=== PATIENT | female | born 1945 | race Caucasian/White ===

== ENCOUNTER 2018-01-11 14:41 | Inpatient (IN) | payer MEDICARE ==
[~2018-01-11] VITALS: Ht 165.1 cm; Wt 17.8 kg
[~2018-01-11 14:41] MED LIST: ALLO300T PO; AMLO5TAB4 PO; ATEN50TA41 PO; CHOL400C PO; CLOP75TA52 PO; DOXA8TAB63 PO; DOXY100T9 PO; FLAX1CAP PO; FLUT1BLS INH; GABA-826 PO; GABA600T2 PO; HYDR-3245 PO; INSU100I29 SC; INSU100V14 SC; LEVO750T26 PO; LISI40TA PO; NITR0.4T SL; SIMV40TA3 PO; TIOT18CA INH
[2018-01-11] MEDS ORDERED: ALBU8.5H8 INH (15:14)
[2018-01-11] MEDS ORDERED: LISI40TA PO (15:14)
[2018-01-11] MEDS ORDERED: INSU100I13 SC (15:14)
[2018-01-11 15:23] LABS: BASOPHILS % (AUTO) 1 % (0-1); EOSINOPHILS # (AUTO) 0.18 x10^3/uL (0-0.4); EOSINOPHILS % (AUTO) 1 % (1-7); LYMPHOCYTES # (AUTO) 2.46 x10^3/uL (1-3.4); LYMPHOCYTES % (AUTO) 19 % (22-44); MD NO; MEAN CORPUSCULAR HEMOGLOBIN 29.1 pg (27.0-34.8); MEAN CORPUSCULAR HGB CONC 32.8 g/dL (32.4-35.8); MEAN CORPUSCULAR VOLUME 88.7 fL (80-100); MEAN PLATELET VOLUME 7.7 fL (7.4-10.4); MONOCYTES # (AUTO) 0.71 x10^3/uL (0.2-0.8); MONOCYTES % (AUTO) 6 % (2-9); NEUTROPHILS # (AUTO) 9.52 x10^3/uL (1.8-6.8); NEUTROPHILS % (AUTO) 73 % (42-75); PLATELET COUNT 209 x10^3/uL (130-400); RED BLOOD COUNT 4.25 x10^6/uL (3.82-5.3); RED CELL DISTRIBUTION WIDTH 16.1 % (9.6-15.2)
[2018-01-11 15:28] LABS: CHLORIDE 106 mmol/L (98-107)
[2018-01-11 15:29] LABS: ALANINE AMINOTRANSFERASE 23 U/L (12-78); ALBUMIN 2.9 g/dL (3.4-5.0); ANION GAP 2 mmol/L (5-15); CALCIUM 8.4 mg/dL (8.5-10.1); CREATININE 1.86 mg/dL (0.55-1.02)
[2018-01-11 15:33] LABS: ALKALINE PHOSPHATASE 101 U/L (45-117); BILIRUBIN,TOTAL 0.4 mg/dL (0.2-1.0); TOTAL PROTEIN 5.7 g/dL (6.4-8.2); TROPONIN I < 0.015 ng/mL (0.000-0.045)
[2018-01-11 15:49] LABS: CULTURE INDICATED? NO; MICROSCOPIC NOT IND
[2018-01-11] MEDS ORDERED: SODIUM CHLORIDE FLUSH 10ML SYR IVF ONE (16:30)
[2018-01-11] MEDS ORDERED: SODIUM CHLORIDE FLUSH 10ML SYR IVF PRN (18:00)
[2018-01-11 18:01] VITALS: BP 174/69
[2018-01-11] MEDS ORDERED: NS + 20MEQ KCL 1,000 ML IV SCH (19:17)
[2018-01-11] MEDS ORDERED: HYDROcodone/APAP 5/325 TABLET PO PRN (19:30)
[2018-01-11] MEDS ORDERED: CAPTOPRIL 12.5 MG TABLET PO PRN (19:30)
[2018-01-11] MEDS ORDERED: ONDANSETRON 2MG/ML, 2ML IVPush PRN (19:30)
[2018-01-11] MEDS ORDERED: DOCUSATE 100 MG CAPSULE PO PRN (19:30)
[2018-01-11] MEDS ORDERED: BISACODYL 10 MG SUPP PR PRN (19:30)
[2018-01-11] MEDS ORDERED: TRAZODONE 50MG TABLET PO PRN (19:30)
[2018-01-11] MEDS ORDERED: ENALAPRILAT 1.25 MG/ML, 2ML IVPush PRN (19:30)
[2018-01-11] MEDS ORDERED: ONDANSETRON ODT 4 MG PO PRN (19:30)
[2018-01-11 19:42] VITALS: BP 143/75
[2018-01-11 20:00] LABS: TROPONIN I < 0.015 ng/mL (0.000-0.045)
[2018-01-11] MEDS ORDERED: DEXTROSE 50%, 50ML SYRINGE IVPush PRN (20:00)
[2018-01-11] MEDS ORDERED: DEXTROSE 4 GM TAB.CHEW PO PRN (20:00)
[2018-01-11] MEDS ORDERED: GLUCAGON 1 MG IM PRN (20:00)
[2018-01-11 20:06] LABS: THYROID STIMULATING HORMONE 0.913 mIU/L (0.358-3.740)
[2018-01-11] MEDS: INSULIN LISPRO 100 UNITS/ML, PEN SQ-INSULIN SCH (21:00)
[2018-01-11] MEDS: GABAPENTIN 300 MG CAPSULE PO SCH ×2 (21:00→22:23)
[2018-01-11] MEDS ORDERED: INSULIN ASPART 100 UNITS/ML, VIAL SQ-INSULIN SCH (21:00)
[2018-01-11 21:34] VITALS: BP 126/70
[2018-01-11 21:36] VITALS: BP 138/70
[2018-01-11 21:39] VITALS: BP 150/74
[2018-01-11] MEDS: HEPARIN 5,000 UNITS/ML, 1ML SQ SCH (22:01)
[2018-01-11] MEDS: SODIUM CHLORIDE FLUSH 10ML SYR IVF SCH (22:02)
[2018-01-11] MEDS: LISINOPRIL 20 MG TABLET PO SCH (22:02)
[2018-01-11] MEDS: INSULIN GLARGINE 100 UNITS/ML, PEN SQ-INSULIN SCH (22:24)
[2018-01-11] MEDS: ACETAMINOPHEN 325 MG TABLET PO PRN (22:37)
[2018-01-12] VITALS (8 sets, daily range): BP systolic 126–145; BP diastolic 73–84
[2018-01-12 01:37] LABS: BASOPHILS # (AUTO) 0.32 x10^3/uL (0-0.1); BASOPHILS % (AUTO) 2 % (0-1); EOSINOPHILS % (AUTO) 2 % (1-7); LYMPHOCYTES # (AUTO) 2.23 x10^3/uL (1-3.4); LYMPHOCYTES % (AUTO) 16 % (22-44); MD NO; MEAN CORPUSCULAR HEMOGLOBIN 29.1 pg (27.0-34.8); MEAN CORPUSCULAR HGB CONC 32.4 g/dL (32.4-35.8); MEAN CORPUSCULAR VOLUME 89.7 fL (80-100); MEAN PLATELET VOLUME 7.9 fL (7.4-10.4); MONOCYTES % (AUTO) 4 % (2-9); NEUTROPHILS # (AUTO) 10.31 x10^3/uL (1.8-6.8); NEUTROPHILS % (AUTO) 76 % (42-75); PLATELET COUNT 184 x10^3/uL (130-400); RED BLOOD COUNT 3.94 x10^6/uL (3.82-5.3); RED CELL DISTRIBUTION WIDTH 16.3 % (9.6-15.2)
[2018-01-12 01:48] LABS: ANION GAP 3 mmol/L (5-15); CALCIUM 8.2 mg/dL (8.5-10.1); CHLORIDE 107 mmol/L (98-107); CREATININE 1.83 mg/dL (0.55-1.02)
[2018-01-12 01:52] LABS: TROPONIN I < 0.015 ng/mL (0.000-0.045)
[2018-01-12] MEDS: HEPARIN 5,000 UNITS/ML, 1ML SQ SCH ×3 (06:00→23:24)
[2018-01-12] MEDS ORDERED: IPRATROPIUM 0.5 MG/2.5 ML INHA ONE (06:35)
[2018-01-12] MEDS ORDERED: ALBUTEROL SULFATE 2.5 MG/3 ML ONE (06:35)
[2018-01-12] MEDS: INSULIN LISPRO 100 UNITS/ML, PEN SQ-INSULIN SCH ×4 (07:00→20:12)
[2018-01-12] MEDS: IPRATROPIUM 0.5 MG/2.5 ML INHA NPPB SCH ×4 (07:05→21:00)
[2018-01-12] MEDS: ALBUTEROL SULFATE 2.5 MG/3 ML NPPB SCH ×2 (07:05→08:59)
[2018-01-12] MEDS ORDERED: SODIUM CHLORIDE 0.9% 1,000 ML IV SCH (07:30)
[2018-01-12] MEDS ORDERED: INSULIN ASPART 100 UNITS/ML, VIAL SQ-INSULIN SCH (08:00)
[2018-01-12] MEDS: LISINOPRIL 20 MG TABLET PO SCH ×2 (08:44→20:04)
[2018-01-12] MEDS: GABAPENTIN 300 MG CAPSULE PO SCH ×2 (08:44→20:05)
[2018-01-12] MEDS: SODIUM CHLORIDE FLUSH 10ML SYR IVF SCH ×3 (08:58→20:18)
[2018-01-12] MEDS ORDERED: SIMVASTATIN 40 MG TABLET PO SCH (09:00)
[2018-01-12] MEDS ORDERED: NS + 20MEQ KCL 1,000 ML IV SCH (19:17)
[2018-01-12] MEDS: INSULIN GLARGINE 100 UNITS/ML, PEN SQ-INSULIN SCH (20:11)
[2018-01-12] MEDS: ACETAMINOPHEN 325 MG TABLET PO PRN (21:02)
[2018-01-13] MEDS: IPRATROPIUM 0.5 MG/2.5 ML INHA NPPB SCH ×2 (03:00→12:09)
[2018-01-13 03:22] VITALS: BP 148/84
[2018-01-13 06:17] VITALS: BP 137/78
[2018-01-13] MEDS: INSULIN LISPRO 100 UNITS/ML, PEN SQ-INSULIN SCH ×2 (07:00→11:12)
[2018-01-13] MEDS: GABAPENTIN 300 MG CAPSULE PO SCH (07:58)
[2018-01-13] MEDS: HEPARIN 5,000 UNITS/ML, 1ML SQ SCH (07:59)
[2018-01-13] MEDS: LISINOPRIL 20 MG TABLET PO SCH (07:59)
[2018-01-13] MEDS: SODIUM CHLORIDE FLUSH 10ML SYR IVF SCH (08:59)
[2018-01-13] MEDS: ALBUTEROL SULFATE 2.5 MG/3 ML NPPB SCH (12:08)
== END 2018-01-13 14:15 | disposition home health service (06) | DRG 308 ==
LOC: ED 16:55 → EDIP 16:56 → ED 18:09 → 5SO 18:18
PROVIDERS: ADMIT Family Medicine; ATTEND Family Medicine
DX: R00.1 Bradycardia, unspecified (principal); N17.0 Acute kidney failure with tubular necrosis; I25.10 Atherosclerotic heart disease of native coronary artery without angina pectoris; Z95.5 Presence of coronary angioplasty implant and graft; E78.00 Pure hypercholesterolemia, unspecified; Z88.2 Allergy status to sulfonamides; Z88.8 Allergy status to other drugs, medicaments and biological substances; Z88.3 Allergy status to other anti-infective agents; Z91.013 Allergy to seafood; E11.42 Type 2 diabetes mellitus with diabetic polyneuropathy; E11.65 Type 2 diabetes mellitus with hyperglycemia; I10 Essential (primary) hypertension; J44.9 Chronic obstructive pulmonary disease, unspecified; K21.9 Gastro-esophageal reflux disease without esophagitis; W18.39XA Other fall on same level, initial encounter; Y93.89 Activity, other specified; Y92.89 Other specified places as the place of occurrence of the external cause; Y99.8 Other external cause status; Z86.73 Personal history of transient ischemic attack (TIA), and cerebral infarction without residual deficits; Z87.891 Personal history of nicotine dependence; Z90.710 Acquired absence of both cervix and uterus
CPT/HCPCS: 36415; 71045; 80048; 80053; 81003; 82962; 83735; 84100; 84443; 84484; 85025; 93005; 93306; 94640; 99285; J1644; J3480; J7613; J7644; J1815; J7030

== ENCOUNTER 2018-02-21 15:11 | Emergency (ER) | payer MEDICARE ==
[~2018-02-21] VITALS: Ht 165.1 cm; Wt 113.0 kg
[~2018-02-21 15:11] MED LIST changes: +ALBU8.5H8 INH; +INSU100I13 SC
[2018-02-21 15:39] LABS: BASOPHILS # (AUTO) 0.03 x10^3/uL (0-0.1); BASOPHILS % (AUTO) 0 % (0-1); EOSINOPHILS # (AUTO) 0.21 x10^3/uL (0-0.4); EOSINOPHILS % (AUTO) 3 % (1-7); LYMPHOCYTES # (AUTO) 1.83 x10^3/uL (1-3.4); LYMPHOCYTES % (AUTO) 23 % (22-44); MD NO; MEAN CORPUSCULAR HEMOGLOBIN 29.9 pg (27.0-34.8); MEAN CORPUSCULAR HGB CONC 33.3 g/dL (32.4-35.8); MEAN CORPUSCULAR VOLUME 89.6 fL (80-100); MEAN PLATELET VOLUME 7.7 fL (7.4-10.4); MONOCYTES # (AUTO) 0.41 x10^3/uL (0.2-0.8); MONOCYTES % (AUTO) 5 % (2-9); NEUTROPHILS # (AUTO) 5.33 x10^3/uL (1.8-6.8); NEUTROPHILS % (AUTO) 68 % (42-75); PLATELET COUNT 194 x10^3/uL (130-400); RED CELL DISTRIBUTION WIDTH 16.8 % (9.6-15.2)
[2018-02-21 15:48] LABS: ALBUMIN 3.1 g/dL (3.4-5.0); ANION GAP 10 mmol/L (5-15); CALCIUM 8.6 mg/dL (8.5-10.1); CHLORIDE 107 mmol/L (98-107); CREATININE 1.43 mg/dL (0.55-1.02)
[2018-02-21 15:57] LABS: TROPONIN I < 0.015 ng/mL (0.000-0.045)
[2018-02-21 17:07] VITALS: BP 178/84
== END 2018-02-21 17:40 | disposition home or self-care (01) ==
LOC: ED 16:40
DX: E11.65 Type 2 diabetes mellitus with hyperglycemia (principal); I11.9 Hypertensive heart disease without heart failure; E11.21 Type 2 diabetes mellitus with diabetic nephropathy; K21.9 Gastro-esophageal reflux disease without esophagitis; J44.9 Chronic obstructive pulmonary disease, unspecified; E78.00 Pure hypercholesterolemia, unspecified; M10.9 Gout, unspecified; Z86.73 Personal history of transient ischemic attack (TIA), and cerebral infarction without residual deficits
CPT/HCPCS: 36415; 71045; 80048; 82040; 84484; 85025; 93005; 99285

== ENCOUNTER → 2018-08-17 | Outpatient (CLI) | payer MEDICARE ==
[~2018-08-17] MED LIST changes: -GABA600T2 PO; +GABA600T7 PO; +GADOBUTROL 10 MMOL/10 ML PFS ONE
== END | disposition home or self-care (01) ==
LOC: CFH 09:05
PROVIDERS: ATTEND Psychiatry & Neurology Neurology
DX: S09.90XA Unspecified injury of head, initial encounter (principal); H49.22 Sixth [abducent] nerve palsy, left eye; X58.XXXA Exposure to other specified factors, initial encounter; Y93.89 Activity, other specified; Y92.89 Other specified places as the place of occurrence of the external cause; Y99.8 Other external cause status
CPT/HCPCS: 70543; 70553; A9585

== ENCOUNTER 2018-10-09 13:03 | Inpatient (IN) | payer MEDICARE ==
[~2018-10-09] VITALS: Ht 165.1 cm; Wt 113.7 kg
[~2018-10-09 13:03] MED LIST changes: -GADOBUTROL 10 MMOL/10 ML PFS ONE
--- NOTE | 2018-10-09 13:08 | NUR ---
PATIENT ARRIVES FROM HOME WITH INCREASED SHORTNESS OF BREATH AND WEAKNESS FROM HER HOSPITAL VISIT LAST MONDAY. PATIENT BROUGHT BY EMS. SHE WEARS HOME OXYGEN [address] GOODE SAYS SHE HAS BRONCHITIS AND GAVE HER BUT SHE ISN'T GETTING BETTER. PATIENT ARRIVES WITH COUGH, WEAKNESS, AND SHORTNESS OF BREATH. ON OXYGEN AND MONITOR.
[2018-10-09] MEDS ORDERED: ALBUTEROL/IPRATROPIUM 2.5MG/0.5MG, 3 ML ONE (13:37)
[2018-10-09] MEDS: ALBUTEROL/IPRATROPIUM 2.5MG/0.5MG, 3 ML NPPB SCH ×3 (13:42→23:26)
--- NOTE | 2018-10-09 14:01 | NUR ---
patient back from radiology. she is on oxygen, and on monitor, rails up in bed. she is aox4. awaiting er workup.
[2018-10-09 14:02] LABS: BASOPHILS # (AUTO) 0.02 x10^3/uL (0-0.1); BASOPHILS % (AUTO) 0 % (0-1); EOSINOPHILS # (AUTO) 0.07 x10^3/uL (0-0.4); EOSINOPHILS % (AUTO) 1 % (1-7); LYMPHOCYTES # (AUTO) 1.12 x10^3/uL (1-3.4); LYMPHOCYTES % (AUTO) 21 % (22-44); MD NO; MEAN CORPUSCULAR HEMOGLOBIN 28.7 pg (27.0-34.8); MEAN CORPUSCULAR HGB CONC 32.4 g/dL (32.4-35.8); MEAN CORPUSCULAR VOLUME 88.4 fL (80-100); MEAN PLATELET VOLUME 7.6 fL (7.4-10.4); MONOCYTES # (AUTO) 0.28 x10^3/uL (0.2-0.8); MONOCYTES % (AUTO) 5 % (2-9); NEUTROPHILS # (AUTO) 3.78 x10^3/uL (1.8-6.8); NEUTROPHILS % (AUTO) 72 % (42-75); PLATELET COUNT 161 x10^3/uL (130-400); RED CELL DISTRIBUTION WIDTH 16.1 % (9.6-15.2)
--- NOTE | 2018-10-09 14:12 | NUR ---
patient is getting ekg at this time. patient daughter and granddaughter in room.
[2018-10-09 14:13] LABS: ALBUMIN 3.5 g/dL (3.4-5.0); ANION GAP 5 mmol/L (5-15); CALCIUM 8.7 mg/dL (8.5-10.1); CHLORIDE 105 mmol/L (98-107)
[2018-10-09 14:18] LABS: CREATININE 1.67 mg/dL (0.55-1.02)
--- NOTE | 2018-10-09 14:25 | NUR ---
patient in bed, and awaiting er workup.
[2018-10-09 15:09] LABS: TROPONIN I < 0.015 ng/mL (0.000-0.045)
--- NOTE | 2018-10-09 15:25 | NUR ---
CARMELLA RN: DIEGO PRATT WAS AT BEDSIDE FOR RECHECK/EXPLANATION OF POC. PT AO X 4. SKIN PWD. PT HAS AUDIBLE WHEEZING, ABLE TO SPEAK IN SHORT 3-5 WORD SENTENCES W/O DIFFICULTY. PT MEDICATED ORDERED. PT DENIES PAIN/NEEDS AT THIS TIME. FAMILY AT BEDSIDE. PT ON CONT BP, CARDIAC AND O2 MONITORS. CALL LIGHT WITHIN REACH.
[2018-10-09] MEDS ORDERED: CEFTRIAXONE PMX 1GM/50ML 50 ML IVPB ONE (15:30)
[2018-10-09] MEDS ORDERED: SODIUM CHLORIDE FLUSH 10ML SYR IVF PRN (15:30)
[2018-10-09] MEDS ORDERED: CEFTRIAXONE PMX 1GM/50ML 50 ML ONE (15:43)
--- NOTE | 2018-10-09 15:53 | NUR ---
REPORT GIVEN TO ZIA MORALES.
[2018-10-09] MEDS ORDERED: ACETAMINOPHEN 325 MG TABLET PO PRN (16:00)
--- NOTE | 2018-10-09 16:12 | NUR ---
GOT PATIENT UP FOR THIRD TIME TO BATHROOM. HAD OXYGEN ON PATIENT THROUGHOUT, BUT PATIENT WA 82% WHEN I GOT HER BACK IN BED AND VISIBLY USING ACCESSORY MUSCLES TO BREATHE.
--- NOTE | 2018-10-09 16:17 | NUR ---
PATIENT URINE COLLECTED AND SENT TO LAB. LABELED IN PRESENCE OF PATIENT.
[2018-10-09] MEDS ORDERED: INSULIN LISPRO 100 UNITS/ML, PEN SQ-INSULIN SCH ×2 (17:00)
[2018-10-09 17:12] VITALS: BP 130/65
[2018-10-09 18:36] VITALS: BP 169/74
[2018-10-09] MEDS: HEPARIN 5,000 UNITS/ML, 1ML SQ SCH (20:07)
[2018-10-09] MEDS: LISINOPRIL 20 MG TABLET PO SCH (20:08)
[2018-10-09] MEDS: DOXYCYCLINE 100MG TABLET PO SCH (20:08)
[2018-10-09] MEDS: GABAPENTIN 300 MG CAPSULE PO SCH (20:08)
[2018-10-09] MEDS ORDERED: INSULIN GLARGINE 100 UNITS/ML, PEN SQ-INSULIN SCH (21:00)
[2018-10-09 21:01] VITALS: BP 175/75
[2018-10-09 21:59] LABS: MICROSCOPIC NOT IND
[2018-10-09 22:02] LABS: CULTURE INDICATED? NO
[2018-10-09] MEDS: BUDESONIDE 0.5 MG/2 ML INHA INH SCH (23:26)
[2018-10-10 01:01] VITALS: BP 156/63
[2018-10-10] MEDS: ALBUTEROL/IPRATROPIUM 2.5MG/0.5MG, 3 ML NPPB SCH ×5 (03:00→19:24)
[2018-10-10] MEDS: BUDESONIDE 0.5 MG/2 ML INHA INH SCH ×2 (06:09→19:24)
[2018-10-10 07:05] LABS: MEAN CORPUSCULAR HEMOGLOBIN 28.4 pg (27.0-34.8); MEAN CORPUSCULAR VOLUME 88.9 fL (80-100); MEAN PLATELET VOLUME 7.7 fL (7.4-10.4); PLATELET COUNT 171 x10^3/uL (130-400); RED BLOOD COUNT 3.86 x10^6/uL (3.82-5.3)
[2018-10-10 07:31] LABS: ANION GAP 6 mmol/L (5-15); CALCIUM 8.9 mg/dL (8.5-10.1); CHLORIDE 105 mmol/L (98-107); CREATININE 1.49 mg/dL (0.55-1.02)
[2018-10-10 07:36] LABS: BASOPHILS # (AUTO) 0.01 x10^3/uL (0-0.1); BASOPHILS % (AUTO) 0 % (0-1); EOSINOPHILS % (AUTO) 0 % (1-7); LYMPHOCYTES % (AUTO) 19 % (22-44); MD SCAN; MONOCYTES # (AUTO) 0.15 x10^3/uL (0.2-0.8); MONOCYTES % (AUTO) 4 % (2-9); NEUTROPHILS # (AUTO) 2.76 x10^3/uL (1.8-6.8); NEUTROPHILS % (AUTO) 76 % (42-75)
[2018-10-10 07:55] VITALS: BP 179/83
[2018-10-10] MEDS: GABAPENTIN 300 MG CAPSULE PO SCH ×2 (08:35→20:47)
[2018-10-10] MEDS: LISINOPRIL 20 MG TABLET PO SCH (08:35)
[2018-10-10] MEDS: DOXYCYCLINE 100MG TABLET PO SCH ×2 (08:36→20:46)
[2018-10-10] MEDS: ALLOPURINOL 300 MG TABLET PO SCH (08:36)
[2018-10-10] MEDS: SIMVASTATIN 20 MG TABLET PO SCH (08:36)
[2018-10-10] MEDS: HEPARIN 5,000 UNITS/ML, 1ML SQ SCH ×2 (08:36→20:47)
[2018-10-10] MEDS ORDERED: TEMPLATE NON-FORMULARY MED. (Tiotropium Bromide** (Spiriva**) 18 MCG) INH SCH (09:00)
[2018-10-10] MEDS ORDERED: INSULIN LISPRO 100 UNITS/ML, PEN SQ-INSULIN ONE (09:30)
[2018-10-10] MEDS: INSULIN LISPRO 100 UNITS/ML, PEN SQ-INSULIN SCH ×4 (11:00→17:39)
[2018-10-10 12:50] VITALS: BP 166/68
[2018-10-10] MEDS: HYDROcodone/APAP 10/325 MG TABLET PO PRN ×2 (12:56→20:57)
[2018-10-10] MEDS: VERAPAMIL 120MG TABLET PO SCH ×3 (12:56→20:47)
[2018-10-10] MEDS ORDERED: PHENAZOPYRIDINE 200 MG TABLET PO PRN (15:30)
[2018-10-10] MEDS: CEFTRIAXONE PMX 1GM/50ML 50 ML IV SCH (16:39)
[2018-10-10 19:12] VITALS: BP 146/54
[2018-10-10] MEDS: INSULIN GLARGINE 100 UNITS/ML, PEN SQ-INSULIN SCH (20:57)
[2018-10-11 03:17] VITALS: BP 165/80
[2018-10-11] MEDS: BUDESONIDE 0.5 MG/2 ML INHA INH SCH ×2 (06:42→19:34)
[2018-10-11] MEDS: ALBUTEROL/IPRATROPIUM 2.5MG/0.5MG, 3 ML NPPB SCH ×4 (06:42→19:34)
[2018-10-11 07:47] VITALS: BP 150/64
[2018-10-11] MEDS ORDERED: INSULIN GLARGINE 100 UNITS/ML, PEN SQ-INSULIN SCH (08:00)
[2018-10-11] MEDS ORDERED: predniSONE 50MG TABLET ONE (08:16)
[2018-10-11] MEDS: DOXYCYCLINE 100MG TABLET PO SCH ×2 (08:31→20:48)
[2018-10-11] MEDS: HEPARIN 5,000 UNITS/ML, 1ML SQ SCH ×2 (08:31→20:47)
[2018-10-11] MEDS: INSULIN LISPRO 100 UNITS/ML, PEN SQ-INSULIN SCH ×3 (08:31→17:05)
[2018-10-11] MEDS: LISINOPRIL 20 MG TABLET PO SCH (08:32)
[2018-10-11] MEDS: VERAPAMIL 120MG TABLET PO SCH ×4 (08:32→20:47)
[2018-10-11] MEDS: SIMVASTATIN 20 MG TABLET PO SCH (08:33)
[2018-10-11] MEDS: ALLOPURINOL 300 MG TABLET PO SCH (08:33)
[2018-10-11] MEDS: GABAPENTIN 300 MG CAPSULE PO SCH ×2 (08:33→20:47)
[2018-10-11 13:07] VITALS: BP 115/50
[2018-10-11] MEDS: CEFTRIAXONE PMX 1GM/50ML 50 ML IV SCH (15:41)
[2018-10-11] MEDS: HYDROcodone/APAP 10/325 MG TABLET PO PRN ×2 (17:08→21:18)
[2018-10-11 19:16] VITALS: BP 156/73
[2018-10-11] MEDS: INSULIN GLARGINE 100 UNITS/ML, PEN SQ-INSULIN SCH (20:49)
[2018-10-11] MEDS ORDERED: VERAPAMIL 120MG TABLET PO ONE (21:00)
[2018-10-12] MEDS: HYDROcodone/APAP 10/325 MG TABLET PO PRN ×2 (01:24→19:36)
[2018-10-12 02:10] VITALS: BP 148/72
[2018-10-12 06:26] VITALS: BP 146/58
[2018-10-12] MEDS: BUDESONIDE 0.5 MG/2 ML INHA INH SCH ×2 (06:30→21:00)
[2018-10-12] MEDS: ALBUTEROL/IPRATROPIUM 2.5MG/0.5MG, 3 ML NPPB SCH ×4 (06:30→20:10)
[2018-10-12] MEDS: LISINOPRIL 20 MG TABLET PO SCH (08:02)
[2018-10-12] MEDS: GABAPENTIN 300 MG CAPSULE PO SCH ×2 (08:02→21:23)
[2018-10-12] MEDS: SIMVASTATIN 20 MG TABLET PO SCH (08:02)
[2018-10-12] MEDS: ALLOPURINOL 300 MG TABLET PO SCH (08:02)
[2018-10-12] MEDS: HEPARIN 5,000 UNITS/ML, 1ML SQ SCH ×2 (08:03→21:22)
[2018-10-12] MEDS: VERAPAMIL 120MG TABLET PO SCH ×3 (08:03→21:24)
[2018-10-12] MEDS: AMOXICILLIN 500 MG CAPSULE PO SCH ×3 (08:03→21:23)
[2018-10-12] MEDS: DOXYCYCLINE 100MG TABLET PO SCH ×2 (08:03→21:24)
[2018-10-12] MEDS: INSULIN LISPRO 100 UNITS/ML, PEN SQ-INSULIN SCH ×3 (08:14→17:55)
[2018-10-12 14:00] VITALS: BP 138/60
[2018-10-12 20:00] VITALS: BP 167/70
[2018-10-12] MEDS: INSULIN GLARGINE 100 UNITS/ML, PEN SQ-INSULIN SCH (21:24)
[2018-10-13 01:55] VITALS: BP 151/78
[2018-10-13] MEDS: HYDROcodone/APAP 10/325 MG TABLET PO PRN ×2 (02:07→09:03)
[2018-10-13] MEDS: PINK BISMUTH 87.33 MG/5 ML ORAL SUSP PO PRN ×2 (02:43→13:02)
[2018-10-13] MEDS ORDERED: OMEPRAZOLE 20 MG CAPSULE.DR PO SCH (06:00)
[2018-10-13] MEDS: ALBUTEROL/IPRATROPIUM 2.5MG/0.5MG, 3 ML NPPB SCH ×3 (06:49→13:59)
[2018-10-13 08:18] VITALS: BP 152/70
[2018-10-13] MEDS: INSULIN LISPRO 100 UNITS/ML, PEN SQ-INSULIN SCH ×2 (08:45→12:31)
[2018-10-13] MEDS: DOXYCYCLINE 100MG TABLET PO SCH (08:46)
[2018-10-13] MEDS: AMOXICILLIN 500 MG CAPSULE PO SCH (08:46)
[2018-10-13] MEDS: HEPARIN 5,000 UNITS/ML, 1ML SQ SCH (08:47)
[2018-10-13] MEDS: LISINOPRIL 20 MG TABLET PO SCH (08:47)
[2018-10-13] MEDS: ALLOPURINOL 300 MG TABLET PO SCH (08:47)
[2018-10-13] MEDS: BUDESONIDE 0.5 MG/2 ML INHA INH SCH (09:00)
[2018-10-13] MEDS: VERAPAMIL 120MG TABLET PO SCH (09:00)
[2018-10-13] MEDS: GABAPENTIN 300 MG CAPSULE PO SCH (09:00)
[2018-10-13] MEDS: SIMVASTATIN 20 MG TABLET PO SCH (09:01)
[2018-10-13 13:41] VITALS: BP 145/66
[2018-10-13] MEDS ORDERED: LISI-170 PO (13:44)
[2018-10-13] MEDS ORDERED: VERA240T10 PO (13:44)
[2018-10-13] MEDS ORDERED: AMOX-291 PO (13:44)
[2018-10-13] MEDS ORDERED: BUDE10.2 PO (13:44)
[2018-10-13] MEDS ORDERED: DOXY100T PO (13:44)
[2018-10-13] MEDS ORDERED: PRED20TA PO (13:48)
== END 2018-10-13 15:30 | disposition home health service (06) | DRG 193 ==
LOC: ED 14:24 → EDIP 15:19 → 3NE 16:26 → 4WST 20:51 → DCLOUNGE 10-13 15:30
PROVIDERS: ADMIT Family Medicine; ATTEND Family Medicine
DX: J18.9 Pneumonia, unspecified organism (principal); J96.01 Acute respiratory failure with hypoxia; J44.1 Chronic obstructive pulmonary disease with (acute) exacerbation; J44.0 Chronic obstructive pulmonary disease with (acute) lower respiratory infection; E11.22 Type 2 diabetes mellitus with diabetic chronic kidney disease; E78.00 Pure hypercholesterolemia, unspecified; E78.5 Hyperlipidemia, unspecified; I12.9 Hypertensive chronic kidney disease with stage 1 through stage 4 chronic kidney disease, or unspecified chronic kidney disease; I45.81 Long QT syndrome; E11.40 Type 2 diabetes mellitus with diabetic neuropathy, unspecified; N18.9 Chronic kidney disease, unspecified; M10.9 Gout, unspecified; Z79.4 Long term (current) use of insulin; Z86.73 Personal history of transient ischemic attack (TIA), and cerebral infarction without residual deficits; Z87.891 Personal history of nicotine dependence; Z90.710 Acquired absence of both cervix and uterus; Z95.5 Presence of coronary angioplasty implant and graft; Z79.899 Other long term (current) drug therapy; Z79.51 Long term (current) use of inhaled steroids; Z88.8 Allergy status to other drugs, medicaments and biological substances; Z88.1 Allergy status to other antibiotic agents; Z91.041 Radiographic dye allergy status; Z91.013 Allergy to seafood
CPT/HCPCS: 36415; 71046; 80048; 81003; 82040; 82962; 83605; 83880; 84145; 84484; 85025; 87040; 93005; 94640; 96374; 99285; G0378; J0696; J1644; J7620; J7626; J1815; J7512

== ENCOUNTER 2019-03-08 12:02 | Outpatient (CLI) | payer MEDICARE | END 2019-03-08 23:59 | disposition home or self-care (01) | LOC: RAD 12:02 | PROVIDERS: ATTEND Internal Medicine Cardiovascular Disease | DX: I25.10 Atherosclerotic heart disease of native coronary artery without angina pectoris (principal); R06.02 Shortness of breath | CPT/HCPCS: 78452; 93017; A9502; J2785 ==

== ENCOUNTER 2019-06-27 19:05 | Observation (INO) | payer MEDICARE ==
[~2019-06-27] VITALS: Ht 165.1 cm; Wt 115.6 kg
[~2019-06-27 19:05] MED LIST changes: +AMOX-291 PO; +AMOX-367 PO; +BUDE10.2 PO; +DOXY-162 PO; +DOXY100T PO; -DOXY100T9 PO; +LISI-170 PO; -NITR0.4T SL; +NITR0.4T41 SL; +PRED20TA PO; +VERA240T10 PO
[2019-06-27] MEDS ORDERED: SODIUM CHLORIDE FLUSH 10ML SYR IVF ONE (20:30)
[2019-06-27 20:39] LABS: BASOPHILS # (AUTO) 0.11 x10^3/uL (0-0.1); BASOPHILS % (AUTO) 2 % (0-1); EOSINOPHILS # (AUTO) 0.26 x10^3/uL (0-0.4); EOSINOPHILS % (AUTO) 4 % (1-7); LYMPHOCYTES # (AUTO) 1.34 x10^3/uL (1-3.4); LYMPHOCYTES % (AUTO) 22 % (22-44); MD NO; MEAN CORPUSCULAR HEMOGLOBIN 29.6 pg (27.0-34.8); MEAN CORPUSCULAR HGB CONC 32.1 g/dL (32.4-35.8); MEAN CORPUSCULAR VOLUME 92.4 fL (80-100); MEAN PLATELET VOLUME 7.2 fL (7.4-10.4); MONOCYTES # (AUTO) 0.54 x10^3/uL (0.2-0.8); MONOCYTES % (AUTO) 9 % (2-9); NEUTROPHILS # (AUTO) 3.89 x10^3/uL (1.8-6.8); NEUTROPHILS % (AUTO) 63 % (42-75); PLATELET COUNT 218 x10^3/uL (130-400); RED BLOOD COUNT 3.02 x10^6/uL (3.82-5.3); RED CELL DISTRIBUTION WIDTH 17.3 % (9.6-15.2)
[2019-06-27 20:48] LABS: ALBUMIN 2.5 g/dL (3.4-5.0); ANION GAP 6 mmol/L (5-15); CALCIUM 8.5 mg/dL (8.5-10.1); CHLORIDE 108 mmol/L (98-107)
[2019-06-27 20:51] LABS: ALANINE AMINOTRANSFERASE 13 U/L (12-78); ALKALINE PHOSPHATASE 111 U/L (45-117); BILIRUBIN,TOTAL 0.2 mg/dL (0.2-1.0); CREATININE 2.15 mg/dL (0.55-1.02); TOTAL PROTEIN 5.7 g/dL (6.4-8.2)
--- NOTE | 2019-06-27 21:00 | NUR ---
PT PLACED ON ALL ROOM MONITORING. PT COMFORTABLE AT THIS TIME, WARM BLANKET PROVIDED, CALL LIGHT WITHIN REACH. OXYGEN MAINTAINED PER HOME USE AT 2 LITERS VIA NC. FAMILY AT BS.
[2019-06-27 21:04] LABS: MICROSCOPIC AUTO
[2019-06-27 21:14] LABS: CULTURE INDICATED? YES
--- NOTE | 2019-06-27 21:41 | NUR ---
RESULTS AND POC REVIEWED WITH PT. PT STATES SHE WILL MAKE DECISION ON ADMIT AFTER CT RESULTS. FAMILY AT DISPUTING THIS, STATING TO PT THAT SHE WANTS HER TO STAY. PT ADAMANT ABOUT WANTING TO GO HOME UNLESS CT INDICATES COMPLICATION WITH UTI. PT REQUESTING TO HOLD ON IV UNTIL AFTER CT RESULT AND PREFERS IM ANTIBIOTIC SHOT. PT TO CT AT THIS TIME, WILL HOLD ON MED AT THIS TIME PER PT REQUEST.
[2019-06-27] MEDS ORDERED: CEFTRIAXONE PMX 1GM/50ML 50 ML IV ONE (22:00)
[2019-06-27] MEDS ORDERED: CEFTRIAXONE PMX 1GM/50ML 50 ML ONE (22:23)
--- NOTE | 2019-06-27 22:38 | NUR ---
BEDSIDE REPORT AND CARE FROM MARLEN GOVEA. CARE ASSUMED AT THIS TIME. ADMITTING PROVIDER AT BEDSIDE DISCUSSING POC. PT AGREES TO ADMISSION WITH DAUGHTER. VSS. SR ON MONITOR. REPORTS 4/10 CHRONIC BACK PAIN, NO ORDERS RECEIVED FOR PAIN AT THIS TIME. PT REPOSITIONED FOR COMFORT. IV TO BE PLACED PER DR. SHAW AND IV ANTIBIOTICS TO BE ADMIN. NO BLOOD CULTURES PRIOR TO ANTIBIOTIC ADMIN PER DR. SHAW. CALL LIGHT IN REACH. FALL PRECAUTIONS IN PLACE. SIDE RAILS UPX2. ROOM RECEIVED ON FLOOR, ONCE IV PLACED AND SUPERVISOR ENGRAVING, PT TO BE TRANSFERRED TO FLOOR. PT AND DAUGHTER UPDATED ON POC, VERBALIZED UNDERSTANDING AND AGREE TO POC.
[2019-06-27] MEDS ORDERED: DOXA8TAB63 PO (22:59)
--- NOTE | 2019-06-27 23:03 | NUR ---
ATTEMPTED TO CALL REPORT TO SHAY GOVEA FOR ROOM 376 ON FLOOR.
--- NOTE | 2019-06-27 23:09 | NUR ---
REPORT GIVEN TO SHAY GOVEA FOR ROOM 376. PT READY FOR TRANSPORT.
[2019-06-27] MEDS ORDERED: ALBUTEROL SULFATE 2.5 MG/3 ML NPPB PRN (23:30)
[2019-06-27] MEDS: INSULIN GLARGINE 100 UNITS/ML, PEN SQ-INSULIN SCH (23:30)
[2019-06-27] MEDS: BUDESONIDE 0.5 MG/2 ML INHA NPPB SCH (23:30)
[2019-06-27] MEDS ORDERED: SODIUM CHLORIDE 0.9% 1,000 ML IV SCH (23:30)
[2019-06-27] MEDS: GABAPENTIN 300 MG CAPSULE PO SCH (23:47)
[2019-06-27] MEDS: HYDROcodone/APAP 10/325 MG TABLET PO SCH (23:49)
[2019-06-28 00:19] VITALS: BP 133/69
[2019-06-28] MEDS: HYDROcodone/APAP 10/325 MG TABLET PO SCH ×5 (04:33→21:08)
[2019-06-28 05:58] LABS: ANION GAP 7 mmol/L (5-15); CALCIUM 8.3 mg/dL (8.5-10.1); CHLORIDE 110 mmol/L (98-107); CREATININE 1.91 mg/dL (0.55-1.02)
[2019-06-28] MEDS ORDERED: ALBUTEROL/IPRATROPIUM 2.5MG/0.5MG, 3 ML NPPB SCH (06:00)
[2019-06-28] MEDS ORDERED: GABAPENTIN 400 MG CAPSULE ONE (08:12)
[2019-06-28 08:25] VITALS: BP 134/68
[2019-06-28 08:47] LABS: BASOPHILS # (AUTO) 0.04 x10^3/uL (0-0.1); BASOPHILS % (AUTO) 1 % (0-1); EOSINOPHILS # (AUTO) 0.24 x10^3/uL (0-0.4); EOSINOPHILS % (AUTO) 5 % (1-7); LYMPHOCYTES # (AUTO) 1.38 x10^3/uL (1-3.4); LYMPHOCYTES % (AUTO) 27 % (22-44); MD NO; MEAN CORPUSCULAR HEMOGLOBIN 29.2 pg (27.0-34.8); MEAN CORPUSCULAR VOLUME 91.2 fL (80-100); MONOCYTES # (AUTO) 0.42 x10^3/uL (0.2-0.8); MONOCYTES % (AUTO) 8 % (2-9); NEUTROPHILS % (AUTO) 59 % (42-75); PLATELET COUNT 211 x10^3/uL (130-400); RED BLOOD COUNT 2.92 x10^6/uL (3.82-5.3)
[2019-06-28] MEDS: GABAPENTIN 300 MG CAPSULE PO SCH ×2 (08:59→21:07)
[2019-06-28] MEDS: ALLOPURINOL 100 MG TABLET PO SCH (08:59)
[2019-06-28] MEDS: VERAPAMIL ER 240MG TABLET.ER PO SCH (08:59)
[2019-06-28] MEDS: INSULIN LISPRO 100 UNIT/ML, 3ML VIAL SQ-INSULIN SCH ×3 (09:00→17:14)
[2019-06-28] MEDS: LISINOPRIL 20 MG TABLET PO SCH (09:00)
[2019-06-28] MEDS: SIMVASTATIN 20 MG TABLET PO SCH (09:00)
[2019-06-28] MEDS: ALBUTEROL/IPRATROPIUM 2.5MG/0.5MG, 3 ML NPPB SCH ×3 (09:36→20:52)
[2019-06-28] MEDS: BUDESONIDE 0.5 MG/2 ML INHA NPPB SCH ×2 (09:36→20:52)
[2019-06-28] MEDS: SODIUM CHLORIDE 0.9% 1,000 ML IV SCH (11:36)
[2019-06-28 13:52] VITALS: BP 101/61
[2019-06-28 19:04] VITALS: BP 125/72
[2019-06-28] MEDS ORDERED: DOXAZOSIN 2MG TABLET PO SCH (21:00)
[2019-06-28] MEDS: INSULIN GLARGINE 100 UNITS/ML, PEN SQ-INSULIN SCH (21:09)
[2019-06-28] MEDS ORDERED: CEFTRIAXONE PMX 1GM/50ML 50 ML IV SCH (23:30)
[2019-06-29 00:04] LABS: OCCULT BLOOD NEGATIVE (NEGATIVE)
[2019-06-29] MEDS: HYDROcodone/APAP 10/325 MG TABLET PO SCH ×4 (01:21→12:16)
[2019-06-29 02:25] VITALS: BP 132/74
[2019-06-29] MEDS: ALBUTEROL/IPRATROPIUM 2.5MG/0.5MG, 3 ML NPPB SCH ×3 (02:59→14:40)
[2019-06-29 06:46] LABS: BASOPHILS # (AUTO) 0.04 x10^3/uL (0-0.1); BASOPHILS % (AUTO) 1 % (0-1); EOSINOPHILS # (AUTO) 0.35 x10^3/uL (0-0.4); EOSINOPHILS % (AUTO) 6 % (1-7); LYMPHOCYTES # (AUTO) 1.48 x10^3/uL (1-3.4); LYMPHOCYTES % (AUTO) 25 % (22-44); MD NO; MEAN CORPUSCULAR HEMOGLOBIN 29.2 pg (27.0-34.8); MEAN CORPUSCULAR HGB CONC 31.5 g/dL (32.4-35.8); MEAN CORPUSCULAR VOLUME 92.9 fL (80-100); MEAN PLATELET VOLUME 6.9 fL (7.4-10.4); MONOCYTES # (AUTO) 0.47 x10^3/uL (0.2-0.8); MONOCYTES % (AUTO) 8 % (2-9); NEUTROPHILS # (AUTO) 3.59 x10^3/uL (1.8-6.8); NEUTROPHILS % (AUTO) 61 % (42-75); PLATELET COUNT 241 x10^3/uL (130-400); RED BLOOD COUNT 3.01 x10^6/uL (3.82-5.3); RED CELL DISTRIBUTION WIDTH 17.6 % (9.6-15.2)
[2019-06-29 06:58] LABS: ANION GAP 8 mmol/L (5-15); CALCIUM 8.6 mg/dL (8.5-10.1); CHLORIDE 110 mmol/L (98-107)
[2019-06-29 07:00] LABS: CREATININE 1.85 mg/dL (0.55-1.02)
[2019-06-29] MEDS: INSULIN LISPRO 100 UNIT/ML, 3ML VIAL SQ-INSULIN SCH ×2 (08:00→12:00)
[2019-06-29 08:09] VITALS: BP 145/69
[2019-06-29] MEDS: GABAPENTIN 300 MG CAPSULE PO SCH (08:19)
[2019-06-29] MEDS: ALLOPURINOL 100 MG TABLET PO SCH (08:20)
[2019-06-29] MEDS: VERAPAMIL ER 240MG TABLET.ER PO SCH (08:20)
[2019-06-29] MEDS: SIMVASTATIN 20 MG TABLET PO SCH (08:20)
[2019-06-29] MEDS: LISINOPRIL 20 MG TABLET PO SCH (08:20)
[2019-06-29] MEDS: SODIUM CHLORIDE 0.9% 1,000 ML IV SCH (08:30)
[2019-06-29] MEDS: BUDESONIDE 0.5 MG/2 ML INHA NPPB SCH (09:50)
[2019-06-29] MEDS ORDERED: CEFD300C37 PO (12:08)
[2019-06-29 12:56] VITALS: BP 126/75
== END 2019-06-29 15:30 | disposition home or self-care (01) ==
LOC: ED 20:35 → INTOOBSV 21:49 → EDIP 21:49 → 3N 23:32 → DCLOUNGE 06-29 15:19
PROVIDERS: ADMIT Family Medicine; ATTEND Family Medicine
DX: N10 Acute pyelonephritis (principal); I50.9 Heart failure, unspecified; N18.9 Chronic kidney disease, unspecified; N17.9 Acute kidney failure, unspecified; E11.40 Type 2 diabetes mellitus with diabetic neuropathy, unspecified; D64.9 Anemia, unspecified; E11.22 Type 2 diabetes mellitus with diabetic chronic kidney disease; J44.9 Chronic obstructive pulmonary disease, unspecified; R06.02 Shortness of breath; G89.29 Other chronic pain; M10.9 Gout, unspecified; E78.5 Hyperlipidemia, unspecified; F19.20 Other psychoactive substance dependence, uncomplicated; F12.10 Cannabis abuse, uncomplicated; E78.00 Pure hypercholesterolemia, unspecified; Z87.891 Personal history of nicotine dependence; Z99.81 Dependence on supplemental oxygen; Z86.73 Personal history of transient ischemic attack (TIA), and cerebral infarction without residual deficits; Z95.5 Presence of coronary angioplasty implant and graft
CPT/HCPCS: 36415; 71045; 74176; 80048; 80053; 81001; 82272; 82962; 83690; 85025; 87077; 87086; 87186; 93970; 94640; 96365; 96366; 96372; 99284; G0378; J0696; J1815; J1817; J7030; J7620; J7626

== ENCOUNTER 2021-03-08 14:06 | Inpatient (IN) | payer MEDICARE ==
[~2021-03-08] VITALS: Ht 165.1 cm; Wt 102.7 kg
[~2021-03-08 14:06] MED LIST changes: +ALLO100T30 PO; +AMLO10TA4 PO; +AMOX1TAB12 PO; +ASPI-963 PO; +ATOR40TA78 PO; +CEFD300C37 PO; +DOXY100C2 PO; +FERR-51 PO; +FLUT1AER INH; +FLUT1BLS3 IH; +FURO-93 PO; +HYDR-2214 PO; -HYDR-3245 PO; +HYDR1TAB53 PO; +INSU100C5 SQ-INSULIN; +INSU100I11 SQ-INSULIN; +INSU100I13 SQ-INSULIN; +INSU100V13 INJ; +INSU100V8 SQ; +ISOS30TA8 PO; -LISI40TA PO; +LISI40TA9 PO; +METO25TA35 PO; +NITR0.3T SL; +OMEP-110 PO; +PRED10TA PO; +SIMV40TA20 PO; -SIMV40TA3 PO
--- NOTE | 2021-03-08 14:23 | NUR ---
ASSUMED CARE OF PATIENT. PATIENT REPORTS SHE WAS RECENTLY ADMITTED ON 02/28 WITH CHEST PAIN AND HEART FAILURE. WHEN PT WENT HOME AND WAS DISCHARGED PT BECAME WEAK AND NOT ABLE TO GET AROUND WELL. PT RESTING IN ROOM. CONTROL AND RECOVERY SPECIAL TACTICS ON. EKG DONE. SINUS TACH NOTED. VS STABLE. CALL LIGHT IN PLACE. WILL CONTINUE TO MONITOR.
[2021-03-08] MEDS ORDERED: METOPROLOL 1 MG/ML, 5ML ONE ×2 (14:52→15:20)
--- NOTE | 2021-03-08 14:57 | NUR ---
DR PRATT WANTS BOLUS GIVEN. LAB IN ROOM. REGISTERED PHYSICAL THERAPIST ON. SINUS TACH NOTED. CALL LIGHT IN PLACE.
[2021-03-08] MEDS: METOPROLOL 1 MG/ML, 5ML IVPush PRN ×2 (14:59→15:23)
[2021-03-08] MEDS ORDERED: SODIUM CHLORIDE 0.9% 1,000ML IVBOLUS ONE (15:00)
[2021-03-08] MEDS ORDERED: SODIUM CHLORIDE FLUSH 10ML SYR IVF ONE (15:00)
[2021-03-08 15:09] LABS: BASOPHILS % (AUTO) 1 % (0-1); EOSINOPHILS % (AUTO) 1 % (1-7); LYMPHOCYTES % (AUTO) 14 % (22-44); MEAN CORPUSCULAR HEMOGLOBIN 29.6 pg (27.0-34.8); MEAN CORPUSCULAR HGB CONC 32.7 g/dL (32.4-35.8); MONOCYTES % (AUTO) 6 % (2-9); NEUTROPHILS % (AUTO) 78 % (42-75); PLATELET COUNT 280 x10^3/uL (130-400); RED CELL DISTRIBUTION WIDTH 15.8 % (9.6-15.2)
[2021-03-08 15:19] LABS: ALBUMIN 2.6 g/dL (3.4-5.0); ANION GAP 7 mmol/L (5-15); CHLORIDE 103 mmol/L (98-107); CREATININE 2.38 mg/dL (0.55-1.02)
[2021-03-08 15:23] LABS: TROPONIN I 0.038 ng/mL (0.000-0.045)
[2021-03-08] MEDS ORDERED: DILTIAZEM 5 MG/ML, 5ML ONE (15:50)
--- NOTE | 2021-03-08 15:53 | NUR ---
PER DR PRATT HE WANTS TWO DOSES OF LOPRESSOR GIVEN, NOW DILT GIVEN. DR PRATT AWRAE OF VS. RIBBON LAP MACHINE TENDER ON.
--- NOTE | 2021-03-08 15:59 | NUR ---
GAVE 10 MG OF DILT, HR NOW 75. NSR. DR PRATT AWARE
[2021-03-08] MEDS ORDERED: DILTIAZEM 5 MG/ML, 5ML IV ONE (16:00)
--- NOTE | 2021-03-08 16:11 | NUR ---
FAMILY AT BEDSIDE. FITTER TACKER ON. NSR NOTED. DR PRATT AWARE. VS STABLE. WILL CONTINUE TO MONITOR.
[2021-03-08] MEDS ORDERED: SODIUM CHLORIDE FLUSH 10ML SYR IVF PRN (17:00)
--- NOTE | 2021-03-08 17:16 | NUR ---
PT USING THE BEDSIDE COMMODE.
--- NOTE | 2021-03-08 17:44 | NUR ---
PT RESTING IN ROOM. MERIT SYSTEM DIRECTOR ON. NSR NOTED. CALL LIGHT IN PLACE. WILL CONTINUE TO MONITOR.
[2021-03-08 19:00] VITALS: BP 135/64
[2021-03-08] MEDS ORDERED: ONDANSETRON ODT 4 MG PO PRN (21:00)
[2021-03-08] MEDS ORDERED: ONDANSETRON 2MG/ML, 2ML IVPush PRN (21:00)
[2021-03-08] MEDS ORDERED: hydrALAzine 20 MG/ML, 1ML IVPush PRN (21:00)
[2021-03-08] MEDS ORDERED: morphine SULFATE 10 MG/ML, 1ML IVPush PRN (21:00)
[2021-03-08] MEDS ORDERED: POLYETHYLENE GLYCOL 17 GM PACKET PO PRN (21:00)
[2021-03-08] MEDS ORDERED: DOCUSATE 100 MG CAPSULE PO PRN (21:00)
[2021-03-08] MEDS ORDERED: ACETAMINOPHEN 325 MG TABLET PO PRN (21:00)
[2021-03-08] MEDS ORDERED: ALBUTEROL SULFATE 2.5 MG/3 ML NPPB PRN (21:00)
[2021-03-08] MEDS ORDERED: HYDROcodone/APAP 10/325 MG TABLET PO PRN (21:00)
[2021-03-08] MEDS ORDERED: INSULIN LISPRO 100 UNITS/ML, PEN SQ-INSULIN SCH (21:00)
[2021-03-08] MEDS ORDERED: BISACODYL 10 MG SUPP PR PRN (21:00)
[2021-03-08] MEDS ORDERED: MELATONIN 5 MG TABLET PO PRN (21:00)
[2021-03-08] MEDS: AMLODIPINE 5 MG TABLET PO SCH (22:04)
[2021-03-08] MEDS: HEPARIN 5,000 UNITS/ML, 1ML SQ SCH (22:04)
[2021-03-08] MEDS: METOPROLOL TARTRATE 25 MG TAB PO SCH (22:04)
[2021-03-08] MEDS: PANTOPRAZOLE 40MG TABLET PO SCH (22:04)
[2021-03-08] MEDS: ALLOPURINOL 100 MG TABLET PO SCH (22:04)
[2021-03-08] MEDS: ATORVASTATIN 40 MG TABLET PO SCH (22:04)
[2021-03-08] MEDS: GABAPENTIN 300 MG CAPSULE PO SCH (22:10)
[2021-03-08] MEDS: SODIUM CHLORIDE 0.9% 1,000 ML IV SCH (23:08)
[2021-03-08] MEDS: INSULIN LISPRO 100 UNITS/ML, PEN SQ-INSULIN SCH (23:09)
[2021-03-08] MEDS: INSULIN GLARGINE 100 UNITS/ML, PEN SQ-INSULIN SCH (23:09)
[2021-03-08 23:20] LABS: MICROSCOPIC NOT IND
[2021-03-08 23:23] LABS: TROPONIN I 0.044 ng/mL (0.000-0.045)
[2021-03-08 23:27] LABS: FREE T4 (FREE THYROXINE) 1.16 ng/dL (0.76-1.46)
[2021-03-09 00:02] VITALS: BP 120/62
[2021-03-09 03:10] LABS: BASOPHILS % (AUTO) 1 % (0-1); EOSINOPHILS % (AUTO) 1 % (1-7); LYMPHOCYTES % (AUTO) 16 % (22-44); MEAN CORPUSCULAR HEMOGLOBIN 29.8 pg (27.0-34.8); MEAN CORPUSCULAR HGB CONC 32.8 g/dL (32.4-35.8); MEAN PLATELET VOLUME 7.3 fL (7.4-10.4); MONOCYTES % (AUTO) 7 % (2-9); NEUTROPHILS % (AUTO) 76 % (42-75); PLATELET COUNT 257 x10^3/uL (130-400); RED BLOOD COUNT 3.54 x10^6/uL (3.82-5.3); RED CELL DISTRIBUTION WIDTH 15.8 % (9.6-15.2)
[2021-03-09 03:22] LABS: CALCIUM 8.5 mg/dL (8.5-10.1); CHLORIDE 103 mmol/L (98-107)
[2021-03-09 03:26] LABS: TROPONIN I 0.035 ng/mL (0.000-0.045)
[2021-03-09 03:31] LABS: ALANINE AMINOTRANSFERASE 16 U/L (12-78); ALBUMIN 2.6 g/dL (3.4-5.0); ALKALINE PHOSPHATASE 105 U/L (45-117); ANION GAP 8 mmol/L (5-15); BILIRUBIN,TOTAL 0.4 mg/dL (0.2-1.0); CHOLESTEROL, TOTAL 97 mg/dL (140-239); CREATININE 2.21 mg/dL (0.55-1.02); HDL CHOL % 49 % (28-40); HDL CHOLESTEROL (DIRECT) 48 mg/dL (40-60); LDL CHOLESTEROL,CALCULATED 22 mg/dL (54-169); LDL/HDL RATIO 0.5 (0.5-3.0); TRIGLYCERIDES 136 mg/dL (50-200); VLDL CHOLESTEROL 27 mg/dL (0-25)
[2021-03-09] MEDS: HEPARIN 5,000 UNITS/ML, 1ML SQ SCH ×3 (06:11→21:00)
[2021-03-09 08:00] VITALS: BP 147/72
[2021-03-09] MEDS: CHOLECALCIFEROL 400 UNITS TABLET PO SCH (08:45)
[2021-03-09] MEDS: ALLOPURINOL 100 MG TABLET PO SCH ×2 (08:45→20:49)
[2021-03-09] MEDS: PANTOPRAZOLE 40MG TABLET PO SCH ×2 (08:45→20:49)
[2021-03-09] MEDS: AMLODIPINE 5 MG TABLET PO SCH ×2 (08:45→20:48)
[2021-03-09] MEDS: TEMPLATE NON-FORMULARY MED. (Fluticasone/Umeclidin/Vilanter (Trelegy Ellipta 100-62.5-25 HOMEINH SCH (08:45)
[2021-03-09] MEDS: METOPROLOL TARTRATE 25 MG TAB PO SCH (08:45)
[2021-03-09] MEDS: ASPIRIN 81 MG TABLET EC PO SCH (08:45)
[2021-03-09] MEDS: GABAPENTIN 300 MG CAPSULE PO SCH ×2 (08:46→20:48)
[2021-03-09] MEDS: ISOSORBIDE MONONITRATE ER 30 MG TABLET PO SCH (08:46)
[2021-03-09] MEDS ORDERED: INSULIN LISPRO 100 UNITS/ML, PEN SQ-INSULIN SCH ×2 (09:00→12:00)
[2021-03-09 09:04] LABS: TROPONIN I 0.021 ng/mL (0.000-0.045)
[2021-03-09] MEDS: SODIUM CHLORIDE 0.9% 1,000 ML IV SCH (10:20)
[2021-03-09 10:22] VITALS: BP 147/72
[2021-03-09 11:09] VITALS: BP 147/72
[2021-03-09 14:00] VITALS: BP 133/62
[2021-03-09] MEDS: METOPROLOL SUCCINATE 100 MG TAB.ER.24H PO SCH (14:00)
[2021-03-09 20:12] VITALS: BP 144/74
[2021-03-09] MEDS: ATORVASTATIN 40 MG TABLET PO SCH (20:48)
[2021-03-09] MEDS: INSULIN LISPRO 100 UNITS/ML, PEN SQ-INSULIN SCH (21:17)
[2021-03-09] MEDS: INSULIN GLARGINE 100 UNITS/ML, PEN SQ-INSULIN SCH (21:18)
[2021-03-10 01:41] VITALS: BP 136/67
[2021-03-10 05:25] LABS: BASOPHILS % (AUTO) 0 % (0-1); EOSINOPHILS % (AUTO) 2 % (1-7); LYMPHOCYTES % (AUTO) 21 % (22-44); MEAN CORPUSCULAR HEMOGLOBIN 30.1 pg (27.0-34.8); MEAN CORPUSCULAR HGB CONC 33.2 g/dL (32.4-35.8); MEAN PLATELET VOLUME 7.1 fL (7.4-10.4); MONOCYTES % (AUTO) 8 % (2-9); NEUTROPHILS % (AUTO) 69 % (42-75); PLATELET COUNT 228 x10^3/uL (130-400); RED BLOOD COUNT 3.19 x10^6/uL (3.82-5.3); RED CELL DISTRIBUTION WIDTH 15.4 % (9.6-15.2)
[2021-03-10 05:31] VITALS: BP 127/63
[2021-03-10] MEDS: HEPARIN 5,000 UNITS/ML, 1ML SQ SCH ×2 (05:34→13:02)
[2021-03-10] MEDS: METOPROLOL SUCCINATE 100 MG TAB.ER.24H PO SCH (05:34)
[2021-03-10 05:46] LABS: CHLORIDE 105 mmol/L (98-107)
[2021-03-10 05:54] LABS: ALANINE AMINOTRANSFERASE 14 U/L (12-78); ALBUMIN 2.3 g/dL (3.4-5.0); ALKALINE PHOSPHATASE 87 U/L (45-117); ANION GAP 5 mmol/L (5-15); BILIRUBIN,TOTAL 0.4 mg/dL (0.2-1.0); CALCIUM 8.8 mg/dL (8.5-10.1); CREATININE 1.82 mg/dL (0.55-1.02); TOTAL PROTEIN 5.6 g/dL (6.4-8.2)
[2021-03-10 06:31] VITALS: BP 144/69
[2021-03-10] MEDS: AMLODIPINE 5 MG TABLET PO SCH (08:58)
[2021-03-10] MEDS: ALLOPURINOL 100 MG TABLET PO SCH (08:58)
[2021-03-10] MEDS: ASPIRIN 81 MG TABLET EC PO SCH (08:58)
[2021-03-10] MEDS: TEMPLATE NON-FORMULARY MED. (Fluticasone/Umeclidin/Vilanter (Trelegy Ellipta 100-62.5-25 HOMEINH SCH (08:59)
[2021-03-10] MEDS: PANTOPRAZOLE 40MG TABLET PO SCH (08:59)
[2021-03-10] MEDS: CHOLECALCIFEROL 400 UNITS TABLET PO SCH (08:59)
[2021-03-10] MEDS: ISOSORBIDE MONONITRATE ER 30 MG TABLET PO SCH (08:59)
[2021-03-10] MEDS: GABAPENTIN 300 MG CAPSULE PO SCH (08:59)
[2021-03-10] MEDS ORDERED: INSULIN LISPRO 100 UNITS/ML, PEN SQ-INSULIN SCH (11:00)
[2021-03-10 12:04] VITALS: BP 139/67
[2021-03-10] MEDS ORDERED: METO-95 PO (15:35)
== END 2021-03-10 17:46 | disposition home health service (06) | DRG 309 ==
LOC: ED 17:17 → EDIP 17:30 → 5SO 18:47
PROVIDERS: ADMIT Internal Medicine Gastroenterology; ATTEND Internal Medicine
DX: I47.1 Supraventricular tachycardia (principal); I13.0 Hypertensive heart and chronic kidney disease with heart failure and stage 1 through stage 4 chronic kidney disease, or unspecified chronic kidney disease; J96.10 Chronic respiratory failure, unspecified whether with hypoxia or hypercapnia; N17.9 Acute kidney failure, unspecified; N18.4 Chronic kidney disease, stage 4 (severe); E66.01 Morbid (severe) obesity due to excess calories; D64.9 Anemia, unspecified; D72.829 Elevated white blood cell count, unspecified; E11.22 Type 2 diabetes mellitus with diabetic chronic kidney disease; E78.5 Hyperlipidemia, unspecified; I25.10 Atherosclerotic heart disease of native coronary artery without angina pectoris; I50.9 Heart failure, unspecified; I65.23 Occlusion and stenosis of bilateral carotid arteries; K21.9 Gastro-esophageal reflux disease without esophagitis; K52.9 Noninfective gastroenteritis and colitis, unspecified; R07.81 Pleurodynia; G47.33 Obstructive sleep apnea (adult) (pediatric); J44.9 Chronic obstructive pulmonary disease, unspecified; Z83.3 Family history of diabetes mellitus; Z68.37 Body mass index [BMI] 37.0-37.9, adult; Z86.73 Personal history of transient ischemic attack (TIA), and cerebral infarction without residual deficits; Z87.891 Personal history of nicotine dependence; Z95.5 Presence of coronary angioplasty implant and graft; Z99.81 Dependence on supplemental oxygen
CPT/HCPCS: 36415; 71045; 78582; 80048; 80053; 80061; 81003; 82040; 82962; 83735; 84100; 84439; 84443; 84484; 85025; 85379; 93005; 93306; 93356; 96361; 96374; G0378; J1644; A9540; A9558; J1815; J7030